=== PATIENT | male | born 1960 | race Caucasian/White ===

== ENCOUNTER → 2017-06-07 | Outpatient (CLI) | payer BC ==
[2013-10-27 06:08] VITALS: BP 158/89
--- NOTE | 2017-06-07 11:34 | US ---
HISTORY: RUQ pain, nausea, and vomiting. Study: Right upper quadrant abdominal ultrasound Comparison: None. Technique: Multiple astudillo scale and color flow Doppler images of the right upper quadrant were obtaine d. Findings: The liver is homogeneously echogenic in appearance. No focal intraparenchymal mass or intrahepatic b iliary ductal dilatation can be observed. The gallbladder fails to demonstrate evidence for cholelit hiasis or layering sludge. The common bile duct is unremarkable measuring 2 mm. No pericholecystic fluid or gallbladder wall thickening can be observed. The CBD measures within normal limits. The righ t kidney appears normal in size without focal parenchymal mass or nephrolithiasis. The right kidney measurers 9 x 6 x 5 cm. No hydronephrosis or perirenal fluid can be observed. The pancreatic head a nd body are unremarkable. The pancreatic tail is largely obscured by overlying bowel gas. IMPRESSION: 1. Liver is echogenic in appearance. No other abnormalities are appreciated. No evidence for gallsto karo or acute cholecystitis. No ascites or biliary ductal dilatation seen. Reported By:
== END ==
LOC: RAD 10:13
PROVIDERS: ATTEND Internal Medicine
DX: R10.11 Right upper quadrant pain (principal); R11.2 Nausea with vomiting, unspecified
CPT/HCPCS: 76705